=== PATIENT | male | born 1970 | race Caucasian/White ===

== ENCOUNTER 2018-02-10 03:09 | Emergency (ER) | payer MEDICAID ==
[~2018-02-10] VITALS: Ht 167.6 cm; Wt 99.8 kg
--- NOTE | 2018-02-10 04:15 | NUR ---
PT BIBSELF C/O REDNESS TO LEFT ABD. PT STATES "INSECT BITE TO LT ABD YESTERDAY WHILE DOING LAUNDRY" PT AOX3 RR EVEN AND UNLABORED. RR EVEN AND UNLABORED. NO SOB NOTED. NAD NOTED. NO NVD AT THIS TIME. PT GOWNED AND PLACED ON MONITOR WAITING FOR MD OVALLES.
[2018-02-10] MEDS ORDERED: VANCOMYCIN 1 GM in IV D5W 250 ML IV ONE (04:30)
--- NOTE | 2018-02-10 04:38 | NUR ---
LAB DRAWN, CALLED LAB FOR NURSING HOME ASSISTANT.
[2018-02-10] MEDS ORDERED: VANCOMYCIN 1 GM VIAL ONE (04:39)
--- NOTE | 2018-02-10 05:07 | NUR ---
Patient is resting comfortably in bed with eyes closed. Easily aroused. VSS
[2018-02-10 05:08] LABS: CREATININE 1.2 mg/dL (0.6-1.3); POTASSIUM 3.1 mmol/L (3.5-5.1)
[2018-02-10 05:12] LABS: BASOPHILS % (AUTO) 0.1 % (0.0-2.0); EOSINOPHILS % (AUTO) 1.6 % (0.0-6.0); HEMATOCRIT 45 % (39-51); HEMOGLOBIN 15.5 g/dL (13.5-17.5); LYMPHOCYTES # (AUTO) 1.5 /CMM (0.8-4.8); LYMPHOCYTES % (AUTO) 13.7 % (20.0-44.0); MEAN CORPUSCULAR HGB CONC 35 g/dl (31.0-36.0); MEAN CORPUSCULAR VOLUME 84 fL (80-96); MONOCYTES # (AUTO) 0.6 /CMM (0.1-1.30); MONOCYTES % (AUTO) 5.7 % (2.0-12.0); NEUTROPHILS # (AUTO) 8.7 /CMM (1.8-8.9); NEUTROPHILS % (AUTO) 78.9 % (43.0-81.0); PLATELET COUNT (AUTO) 263 /CMM (150-450); RDW COEFFICIENT OF VARIATION 12.8 (11.5-15.0); RED BLOOD CELL COUNT(AUTO) 5.33 MIL/uL (4.5-6.0)
--- NOTE | 2018-02-10 05:50 | NUR ---
IV removed. Catheter intact and site benign. Pressure and 4x4 applied to site. No bleeding noted. Patient discharged to home in stable condition. Written and verbal after care instructions given. Patient verbalizes understanding of instruction. ambulatory with a steady gait
[2018-02-10 05:51] VITALS: BP 148/77
== END 2018-02-10 05:52 | disposition home or self-care (01) ==
LOC: ER 03:12
DX: L03.313 Cellulitis of chest wall (principal); W57.XXXA Bitten or stung by nonvenomous insect and other nonvenomous arthropods, initial encounter; Y93.89 Activity, other specified; Y92.89 Other specified places as the place of occurrence of the external cause; Y99.8 Other external cause status
CPT/HCPCS: 36415; 80048-TC; 85025-TC; A4606; J3370; Z7610

== ENCOUNTER 2019-01-06 02:17 | Emergency (ER) | payer MEDICAID ==
[~2019-01-06] VITALS: Ht 182.9 cm; Wt 107.0 kg
--- NOTE | 2019-01-06 02:30 | NUR ---
TO BED 3 AMBULATORY CHEST PAIN WITH DIZZINESS WHILE AT THE GYM. PT REPORTS TAKING PRE WORKOUT. PT AAOX4 NO ACUTE DISTRESS NOTED, RESP EVEN AND UNLABORED. PT APPEARS ANXIOUS. PLACE PT ON CARDIAC MONITORING, CONTINUOUS POX. ER MD AT BEDSIDE TO EVAL PT WITH ORDERS RECEIVED. WILL CARRY OUT ORDERS.
[2019-01-06] MEDS ORDERED: hydrALAZINE HCL IV 20 MG VIAL ONE (02:35)
--- NOTE | 2019-01-06 02:40 | NUR ---
LACTATION COORDINATOR AT BEDSIDE FOR BLOOD DRAW.
[2019-01-06] MEDS ORDERED: IV NS 0.9% 1,000 ML BAG IV ONE (03:00)
[2019-01-06] MEDS ORDERED: hydrALAZINE HCL IV 20 MG VIAL IV ONE (03:00)
[2019-01-06 03:10] LABS: BASOPHILS % (AUTO) 0.3 % (0.0-2.0); EOSINOPHILS % (AUTO) 1.5 % (0.0-6.0); HEMATOCRIT 45 % (39-51); HEMOGLOBIN 15.9 g/dL (13.5-17.5); LYMPHOCYTES # (AUTO) 2.7 /CMM (0.8-4.8); LYMPHOCYTES % (AUTO) 25.6 % (20.0-44.0); MEAN CORPUSCULAR HGB CONC 36 g/dl (31.0-36.0); MEAN CORPUSCULAR VOLUME 86 fL (80-96); MONOCYTES # (AUTO) 0.6 /CMM (0.1-1.30); MONOCYTES % (AUTO) 5.5 % (2.0-12.0); NEUTROPHILS # (AUTO) 6.9 /CMM (1.8-8.9); NEUTROPHILS % (AUTO) 67.1 % (43.0-81.0); PLATELET COUNT (AUTO) 275 /CMM (150-450); WHITE BLOOD COUNT (AUTO) 10.4 K/uL (4.3-11.0)
[2019-01-06 03:13] LABS: ACETAMINOPHEN < 2 ug/ml (10-30); SALICYLATE 1.1 mg/dL (2.8-20.0)
[2019-01-06 03:14] LABS: ALBUMIN 3.7 g/dL (3.4-5.0); ALCOHOL, BLOOD 0 mg/dL (0-0); BILIRUBIN,DIRECT 0.1 mg/dL (0.0-0.2); BILIRUBIN,TOTAL 0.4 mg/dL (0.2-1.0); CALCIUM, SERUM 9.1 mg/dL (8.5-10.1); CREATININE 1.2 mg/dL (0.6-1.3); POTASSIUM 3.4 mmol/L (3.5-5.1); TOTAL PROTEIN, SERUM 7.4 g/dL (6.4-8.2)
--- NOTE | 2019-01-06 03:16 | NUR ---
PT BACK FROM RADIOLOGY. PENDING CT RESULT.
--- NOTE | 2019-01-06 04:53 | NUR ---
IV removed. Catheter intact and site benign. Pressure and 4x4 applied to site. No bleeding noted. Patient discharged to home in stable condition. Written and verbal after care instructions given. Patient verbalizes understanding of instruction. ambulatory with a steady gait noted. pt aaox4 joshua cute distress noted, resp even and unlabored.
[2019-01-06 04:56] VITALS: BP 158/72
== END 2019-01-06 04:57 | disposition home or self-care (01) ==
LOC: ER 02:20
DX: R07.89 Other chest pain (principal); T43.615A Adverse effect of caffeine, initial encounter; R51 Headache; R42 Dizziness and giddiness; I45.10 Unspecified right bundle-branch block; Y92.89 Other specified places as the place of occurrence of the external cause
CPT/HCPCS: 36415; 70450; 71045; 80048; 80076; 80307; 80329; 84484 ×2; 85025; 85730; 93005; 96360; 99284; G0480; J7030; J0360

== ENCOUNTER 2021-06-11 01:43 | Emergency (ER) | payer BC ==
[~2021-06-11] VITALS: Ht 172.7 cm; Wt 99.8 kg
--- NOTE | 2021-06-11 01:45 | NUR ---
bibs for c/o l footpain x 2 days. denied any fall or trauma
--- NOTE | 2021-06-11 02:09 | NUR ---
DR AVALOS AT BED SIDE
[2021-06-11] MEDS ORDERED: CLONIDINE HCL 0.1 MG TABLET ONE (02:19)
[2021-06-11] MEDS ORDERED: NITROGLYCERIN PACKET 1 GM PACKET TD ONE (02:30)
[2021-06-11] MEDS ORDERED: CLONIDINE HCL 0.1 MG TABLET PO ONE (02:30)
[2021-06-11 02:40] LABS: BASOPHILS % (AUTO) 0.3 % (0.0-2.0); EOSINOPHILS % (AUTO) 2.2 % (0.0-6.0); HEMATOCRIT 44 % (39-51); HEMOGLOBIN 15.3 g/dL (13.5-17.5); LYMPHOCYTES # (AUTO) 3.2 K/uL (0.8-4.8); LYMPHOCYTES % (AUTO) 37.4 % (20.0-44.0); MEAN CORPUSCULAR HGB CONC 35 g/dl (31.0-36.0); MEAN CORPUSCULAR VOLUME 87 fL (80-96); MONOCYTES # (AUTO) 0.6 K/uL (0.1-1.30); MONOCYTES % (AUTO) 7.5 % (2.0-12.0); NEUTROPHILS # (AUTO) 4.6 K/uL (1.8-8.9); NEUTROPHILS % (AUTO) 52.6 % (43.0-81.0); PLATELET COUNT (AUTO) 267 K/uL (150-450); RED BLOOD CELL COUNT(AUTO) 5.09 MIL/uL (4.5-6.0); WHITE BLOOD COUNT (AUTO) 8.7 K/uL (4.3-11.0)
[2021-06-11 02:52] LABS: CARBON DIOXIDE 28 mmol/L (21-32); CHLORIDE 105 mmol/L (98-107); CREATININE 1.3 mg/dL (0.6-1.3); GLUCOSE 105 mg/dL (74-106); POTASSIUM 3.7 mmol/L (3.5-5.1); SODIUM SERUM 141 mmol/L (136-145); UREA NITROGEN, BLOOD 28 mg/dL (7-18)
[2021-06-11 03:06] LABS: ALANINE AMINOTRANSFERASE 62 U/L (12-78); ALBUMIN 3.7 g/dL (3.4-5.0); ALKALINE PHOSPHATASE 70 U/L (46-116); ASPARTATE AMINOTRANSFERASE 34 U/L (15-37); BILIRUBIN,DIRECT 0.1 mg/dL (0.0-0.2); BILIRUBIN,TOTAL 0.5 mg/dL (0.2-1.0); TOTAL PROTEIN, SERUM 7.3 g/dL (6.4-8.2)
[2021-06-11] MEDS ORDERED: ALPR0.5T PO (03:17)
[2021-06-11] MEDS ORDERED: CLON0.1T PO (03:17)
[2021-06-11] MEDS ORDERED: HYDR-4209 PO (03:19)
--- NOTE | 2021-06-11 03:27 | NUR ---
Pt is medically stable for d/c. Patient discharged to home in stable condition. Rx and Written and verbal after care instructions given. Patient verbalizes understanding of instruction.
[2021-06-11 03:28] VITALS: BP 140/82
== END 2021-06-11 03:29 | disposition home or self-care (01) ==
LOC: ER 01:47
DX: S90.852A Superficial foreign body, left foot, initial encounter (principal); I11.0 Hypertensive heart disease with heart failure; F41.9 Anxiety disorder, unspecified; R94.31 Abnormal electrocardiogram [ECG] [EKG]; I50.9 Heart failure, unspecified; Z88.0 Allergy status to penicillin; Z79.899 Other long term (current) drug therapy; X58.XXXA Exposure to other specified factors, initial encounter; Y93.89 Activity, other specified; Y92.89 Other specified places as the place of occurrence of the external cause; Y99.8 Other external cause status
CPT/HCPCS: 36415; 71045-TC; 73630-TC; 80048-TC; 80076-TC; 83880; 84484-TC; 85025-TC

== ENCOUNTER 2022-06-14 15:48 | Emergency (ER) | payer BC ==
[~2022-06-14] VITALS: Ht 162.6 cm; Wt 95.3 kg
[~2022-06-14 15:48] MED LIST: ALPR0.5T PO; CLON0.1T PO; HYDR-4209 PO
[2022-06-14 15:56] VITALS: BP 138/70
[2022-06-14] MEDS ORDERED: diphenhydrAMINE HCL 50 MG CAPSULE PO ONE (16:30)
[2022-06-14] MEDS ORDERED: predniSONE 10 MG TABLET PO ONE (16:30)
[2022-06-14] MEDS ORDERED: IV NS 0.9% 1,000 ML BAG IV ONE (16:30)
[2022-06-14 16:38] LABS: BILIRUBIN,URINE NEGATIVE (NEGATIVE); COLOR,URINE YELLOW (YELLOW); LEUKOCYTE ESTERASE ,URINE NEGATIVE (NEGATIVE); NITRITE, URINE NEGATIVE (NEGATIVE); PROTEIN,URINE NEGATIVE (NEGATIVE); UGLUCOSE NEGATIVE (NEGATIVE); UROBILINOGEN,URINE 0.2 EU/dL (0.2)
[2022-06-14 16:51] LABS: BACTERIA,URINE None seen /HPF (None Seen); SQUAMOUS EPITHELIAL CELL,UR 0-2 /HPF (None Seen); WBC,URINE 0-2 /HPF (0-3)
[2022-06-14] MEDS ORDERED: diphenhydrAMINE HCL 50 MG CAPSULE ONE (16:51)
[2022-06-14] MEDS ORDERED: predniSONE 20 MG TABLET ONE (16:51)
[2022-06-14 17:12] LABS: BASOPHILS % (AUTO) 0.1 % (0.0-2.0); EOSINOPHILS % (AUTO) 1.7 % (0.0-6.0); HEMATOCRIT 44 % (39-51); HEMOGLOBIN 15.1 g/dL (13.5-17.5); LYMPHOCYTES # (AUTO) 1.9 K/uL (0.8-4.8); LYMPHOCYTES % (AUTO) 24.1 % (20.0-44.0); MEAN CORPUSCULAR HGB CONC 34 g/dl (31.0-36.0); MEAN CORPUSCULAR VOLUME 85 fL (80-96); MONOCYTES # (AUTO) 0.5 K/uL (0.1-1.30); MONOCYTES % (AUTO) 6.2 % (2.0-12.0); NEUTROPHILS # (AUTO) 5.4 K/uL (1.8-8.9); NEUTROPHILS % (AUTO) 67.9 % (43.0-81.0); PLATELET COUNT (AUTO) 267 K/uL (150-450); RED BLOOD CELL COUNT(AUTO) 5.19 MIL/uL (4.5-6.0)
[2022-06-14 17:39] LABS: CREATININE 1.1 mg/dL (0.6-1.3); POTASSIUM 3.9 mmol/L (3.5-5.1)
[2022-06-14] MEDS ORDERED: PRED50TA PO (18:34)
[2022-06-14] MEDS ORDERED: FAMO-64 PO (18:34)
[2022-06-14 18:43] LABS: ALBUMIN 3.7 g/dL (3.4-5.0); BILIRUBIN,DIRECT 0.2 mg/dL (0.0-0.2); BILIRUBIN,TOTAL 0.7 mg/dL (0.2-1.0); TOTAL PROTEIN, SERUM 7.5 g/dL (6.4-8.2)
--- NOTE | 2022-06-14 18:47 | NUR ---
Patient discharged to home in stable condition. Written and verbal after care instructions given. Patient verbalizes understanding of instruction.
--- NOTE | 2022-06-14 18:47 | NUR ---
IV removed. Catheter intact and site benign. Pressure and 4x4 applied to site. No bleeding noted.
== END 2022-06-14 18:48 | disposition home or self-care (01) ==
LOC: ER 15:49
DX: L50.9 Urticaria, unspecified (principal); F41.9 Anxiety disorder, unspecified; Z88.0 Allergy status to penicillin; Z60.2 Problems related to living alone; Z79.899 Other long term (current) drug therapy
CPT/HCPCS: 99283; 96360; 85025; 80048; 80076; 81001; 36415; Q0163; J7512 ×2; J7030

== ENCOUNTER 2022-10-16 00:49 | Emergency (ER) | payer BC ==
[~2022-10-16] VITALS: Ht 167.6 cm; Wt 95.3 kg
[~2022-10-16 00:49] MED LIST changes: +FAMO-64 PO; +PRED50TA PO
--- NOTE | 2022-10-16 01:09 | NUR ---
BIBS FROM HOME C/O NONRADIATING MIDSTERNAL CP X1 WEEK. PT A/OX 4. TOLERATING R/A WELL WITH NO RESP DISTRESS. CONNECTED PT TO POX AND MONITOR. SAFETY MEASURES IN PLACE.
--- NOTE | 2022-10-16 01:19 | NUR ---
EMT AT PT'S BEDSIDE FOR EKG
--- NOTE | 2022-10-16 01:20 | NUR ---
RAC #18G S/L BLOOD COLLECTED AND SENT TO LAB
--- NOTE | 2022-10-16 01:22 | NUR ---
DR. JOSUE ALICIA AT PT'S BEDSIDE FOR EVAL
[2022-10-16 01:44] LABS: BASOPHILS % (AUTO) 0.4 % (0.0-2.0); EOSINOPHILS % (AUTO) 1.2 % (0.0-6.0); HEMATOCRIT 46 % (39-51); LYMPHOCYTES # (AUTO) 1.9 K/uL (0.8-4.8); LYMPHOCYTES % (AUTO) 14.6 % (20.0-44.0); MEAN CORPUSCULAR HGB CONC 35 g/dl (31.0-36.0); MEAN CORPUSCULAR VOLUME 84 fL (80-96); MONOCYTES # (AUTO) 0.6 K/uL (0.1-1.30); NEUTROPHILS # (AUTO) 10.2 K/uL (1.8-8.9); NEUTROPHILS % (AUTO) 78.8 % (43.0-81.0); PLATELET COUNT (AUTO) 358 K/uL (150-450); RED BLOOD CELL COUNT(AUTO) 5.52 MIL/uL (4.5-6.0); WHITE BLOOD COUNT (AUTO) 12.9 K/uL (4.3-11.0)
[2022-10-16 01:57] LABS: D-DIMER 0.24 mg/L(FEU (0.17-0.50)
--- NOTE | 2022-10-16 01:58 | NUR ---
PRECISION FARMING SPECIALIST AT PT'S BEDSIDE
[2022-10-16 01:59] LABS: CALCIUM, SERUM 9.5 mg/dL (8.5-10.1); CARBON DIOXIDE 27 mmol/L (21-32); CHLORIDE 100 mmol/L (98-107); CREATININE 1.3 mg/dL (0.6-1.3); GLUCOSE 123 mg/dL (74-106); POTASSIUM 3.3 mmol/L (3.5-5.1); SODIUM SERUM 137 mmol/L (136-145); UREA NITROGEN, BLOOD 24 mg/dL (7-18)
[2022-10-16] MEDS ORDERED: ASPIRIN 325 MG TABLET ONE (01:59)
[2022-10-16] MEDS ORDERED: ASPIRIN 325 MG TABLET PO ONE (02:00)
[2022-10-16 02:11] LABS: ALANINE AMINOTRANSFERASE 48 U/L (12-78); ALBUMIN 3.8 g/dL (3.4-5.0); ALKALINE PHOSPHATASE 86 U/L (46-116); ASPARTATE AMINOTRANSFERASE 30 U/L (15-37); BILIRUBIN,DIRECT 0.1 mg/dL (0.0-0.2); BILIRUBIN,TOTAL 0.9 mg/dL (0.2-1.0); TOTAL PROTEIN, SERUM 7.6 g/dL (6.4-8.2)
--- NOTE | 2022-10-16 03:29 | NUR ---
ROOFER HELPER VINYL COATING AT PT'S BEDSIDE FOR 2ND TROP
--- NOTE | 2022-10-16 03:58 | NUR ---
Magno castaneda in [facility] - 10/16/22 at 0359 by GENEVIEVE REPORT GIVEN TO EMS AT BEDSIDE
--- NOTE | 2022-10-16 04:45 | NUR ---
Patient discharged to home in stable condition. Written and verbal after care instructions given. Patient verbalizes understanding of instruction. IV removed. Catheter intact and site benign. Pressure and 4x4 applied to site. No bleeding noted.
[2022-10-16 04:49] VITALS: BP 132/87
--- NOTE | 2022-10-16 04:49 | NUR ---
Magno castaneda in [facility] - 10/16/22 at 0449 by GENEVIEVE Patient discharged to home in stable condition. Written and verbal after care instructions given. Patient verbalizes understanding of instruction.
== END 2022-10-16 04:49 | disposition home or self-care (01) ==
LOC: ER 00:51
DX: R07.89 Other chest pain (principal); F41.9 Anxiety disorder, unspecified; Z60.2 Problems related to living alone; Z79.899 Other long term (current) drug therapy; Z88.0 Allergy status to penicillin
CPT/HCPCS: 36415; 71045-TC; 80048-TC; 80076-TC; 83880; 84484-TC; 85025-TC; 85378-TC; 85730-TC